=== PATIENT | female | born 2000 | race Caucasian/White ===

== ENCOUNTER 2023-05-08 18:45 | Emergency (ER) | payer MEDICAID ==
[~2023-05-08] VITALS: Ht 154.9 cm; Wt 83.4 kg
[2023-05-08 19:00] VITALS: BP 137/94; PULSE 86; RESP 18; TEMP 98.3; O2SAT 100
[2023-05-08] MEDS ORDERED: PRED10TA23 PO (20:49)
[2023-05-08] MEDS ORDERED: KEN0.1O TP (20:49)
== END 2023-05-08 21:00 | disposition home or self-care (01) ==
LOC: ER 18:46
DX: L23.7 Allergic contact dermatitis due to plants, except food (principal); Z91.09 Other allergy status, other than to drugs and biological substances; Z79.899 Other long term (current) drug therapy
CPT/HCPCS: 99283